=== PATIENT | female | born 1995 | race Caucasian/White ===

== ENCOUNTER 2020-05-14 20:34 | Outpatient (CLI) | payer OTHER | END 2020-05-14 22:59 | disposition home or self-care (01) | LOC: GENOP 20:34 | DX: O62.9 Abnormality of forces of labor, unspecified (principal); Z3A.37 37 weeks gestation of pregnancy | CPT/HCPCS: 59025 ==

== ENCOUNTER 2020-05-29 16:29 | Inpatient (IN) | payer OTHER ==
[~2020-05-29] VITALS: Ht 162.6 cm; Wt 83.9 kg
[2020-05-29 17:02] LABS: HEMOGLOBIN 11.9 gm/dl (12.3-15.3); RED BLOOD COUNT 3.94 M/UL (4.00-5.10); WHITE BLOOD COUNT 9.4 K/UL (4.5-11.0)
[2020-05-29] MEDS ORDERED: PEPCID20 MG PO (17:23)
[2020-05-29] MEDS ORDERED: PRENATAL VITAM1 EAC5 PO (17:24)
[2020-05-30] MEDS ORDERED: FERREX 150 FOR1 EACH PO (13:39)
[2020-05-30] MEDS ORDERED: IBUPROFEN800 MG PO (13:39)
[2020-05-30] MEDS ORDERED: COLACE 100MG C100 MG PO (13:39)
[2020-05-31 05:32] LABS: HEMOGLOBIN 9.8 gm/dl (12.3-15.3)
== END 2020-06-01 10:53 | disposition home or self-care (01) | DRG 807 ==
LOC: GENOP 16:29 → OB 16:49
PROVIDERS: Obstetrics & Gynecology; ADMIT Obstetrics & Gynecology
PROC: 10E0XZZ Delivery of Products of Conception, External Approach (ICD-10-PCS; principal; 2020-05-29)
PROC: 10907ZC Drainage of Amniotic Fluid, Therapeutic from Products of Conception, Via Natural or Artificial Opening (ICD-10-PCS; 2020-05-29)
DX: O99.343 Other mental disorders complicating pregnancy, third trimester (principal); Z37.0 Single live birth; F41.8 Other specified anxiety disorders; Z3A.39 39 weeks gestation of pregnancy
CPT/HCPCS: 36415; 51702; 81001; 85014; 85018; 85025; 90715; J2590; J2795; J7120; U0003